=== PATIENT | male | born 2000 | race African-American/Black ===

== ENCOUNTER 2023-03-22 16:47 | Emergency (ER) | payer OTHER ==
[~2023-03-22] VITALS: Ht 177.8 cm; Wt 65.9 kg
[2023-03-22 20:16] VITALS: TEMP 97.2
[2023-03-22 21:06] VITALS: BP 109/65; PULSE 60
== END 2023-03-22 21:06 | disposition home or self-care (01) ==
LOC: COL.ER 16:47
DX: K22.2 Esophageal obstruction (principal)
CPT/HCPCS: C1726; J0330; J1610; J2405; J2704; J3010; J7030